=== PATIENT | male | born 1965 | race African-American/Black ===

== ENCOUNTER 2023-07-24 18:50 | Observation (INO) | payer OTHER ==
[2023-07-24] MEDS: SODIUM CHLORIDE 0.9% 1,000 ML IV STA (20:23)
[2023-07-24] MEDS: PANTOPRAZOLE 40 MG/10 ML VIAL IVP STA (20:25)
[2023-07-24] MEDS: ONDANSETRON 4 MG/2 ML VIAL IVP STA (20:25)
[2023-07-24] MEDS: MORPHINE SULFATE 4 MG/ML SYRINGE IVP STA (20:25)
--- NOTE | 2023-07-24 20:54 | XR ---
EXAMINATION TYPE: XR chest 2V DATE OF EXAM: 07/24/2023 8:49 PM CLINICAL INDICATION:Male, 58 years old with history of abdominal pain; H COMPARISON: None TECHNIQUE: XR chest 2V Frontal and lateral views of the chest. FINDINGS: Lungs/Pleura: Hazy bilateral lung base disease, right greater than left. No pleural effusion or pneum othorax. Pulmonary vascularity: Unremarkable. Heart/mediastinum: Cardiomediastinal silhouette is unremarkable. Musculoskeletal: No acute osseous pathology. IMPRESSION: Bibasilar airspace disease, concerning for developing infectious/inflammatory process.
[2023-07-24 21:26] LABS: Basophils # (A) 0.1 k/uL (0-0.2); Basophils % (A) 1 %; Eosinophils # (A) 0.4 k/uL (0-0.7); Eosinophils % (A) 4 %; HCT 48.7 % (39.0-53.0); HGB 15.8 gm/dL (13.0-17.5); Lymphocytes # (A) 1.2 k/uL (1.0-4.8); Lymphocytes % (A) 12 %; MCH 29.6 pg (25.0-35.0); MCHC 32.4 g/dL (31.0-37.0); MCV 91.3 fL (80.0-100.0); Mean Platelet Volume 7.9; Monocytes # (A) 0.4 k/uL (0-1.0); Monocytes % (A) 4 %; Neutrophils # (A) 7.9 k/uL (1.3-7.7); Neutrophils % (A) 79 %; Platelet Count 182 k/uL (150-450); RBC 5.33 m/uL (4.30-5.90); WBC 10.1 k/uL (3.8-10.6)
[2023-07-24 21:35] LABS: Prothrombin Time 10.6 sec (10.0-12.5)
[2023-07-24] MEDS: IPRATROPIUM-ALBUTEROL 3 ML NEB INHALATION STA (21:41)
[2023-07-24 21:43] LABS: Appearance,Urine Clear (Clear); Bilirubin,Urine Negative (Negative); Blood,Urine Negative (Negative); Color,Urine Yellow; Glucose,Urine (UA) Negative (Negative); Ketones,Urine Negative (Negative); Leukocyte Esterase,Urine Negative (Negative); Nitrite,Urine Negative (Negative); PH, Urine 6.5 (5.0-8.0); Protein,Urine Negative (Negative); Specific Gravity,Urine 1.027 (1.001-1.035)
[2023-07-24] MEDS: METOCLOPRAMIDE 5 MG/ML 2 ML VIAL IVP STA ×2 (21:43→21:55)
[2023-07-24] MEDS: methylPREDNISolone SOD SUCCI 125 MG/2 ML VIAL IV STA (21:55)
[2023-07-24] MEDS: diphenhydrAMINE 50 MG/ML 1 ML VIAL IVP STA (21:55)
[2023-07-24 21:59] LABS: ALT 20 U/L (4-49); AST 29 U/L (17-59); African American GFR (CKD) >90 (>60 ml/min/1.73 sqM); Albumin 3.9 g/dL (3.5-5.0); Alkaline Phosphatase 104 U/L (38-126); Amylase 67 U/L (30-110); Anion Gap 9 mmol/L; Blood Urea Nitrogen 17 mg/dL (9-20); Calcium 9.1 mg/dL (8.4-10.2); Carbon Dioxide 21 mmol/L (22-30); Chloride 106 mmol/L (98-107); Glucose 91 mg/dL (74-99); Lipase 49 U/L (23-300); Non-African American GFR(CKD) >90 (>60 ml/min/1.73 sqM); Potassium 4.3 mmol/L (3.5-5.1); Sodium 136 mmol/L (137-145); Total Bilirubin 0.6 mg/dL (0.2-1.3); Total Protein 7.4 g/dL (6.3-8.2)
--- NOTE | 2023-07-24 23:11 | ED ---
General Adult HPI - General Source: patient, EMS, RN notes reviewed, old records reviewed Mode of arrival: EMS Limitations: no limitations <Kenneth Minor - Last Filed: 07/24/23 23:06> <Hadley Washington - Last Filed: 07/25/23 01:49> - General Chief complaint: Nausea/Vomiting/Diarrhea Stated complaint: N/V/D Time Seen by Provider: 07/24/23 20:10 - History of Present Illness Initial comments: Is a 58-year-old male who presents emergency department complaining of abdominal pain. Is currently at [facility] for opiate abuse. He has been weaned off methadone. Was given Subutex which triggered his abdominal pain, nausea, vomiting. Is endorsing generalized pain. Also has been dealing with a nonproductive cough for multiple days. Has a history of tobacco abuse. Presents for further evaluation. Is asking for pain medications. (Kenneth Minor) 58 male to ER for evaluation of significant abdominal pain nausea vomiting severe nausea vomiting and persistent active vomiting here in the emergency department (Hadley Washington) - Related Data Allergies Allergy/AdvReac Type Severity Reaction Status Date / Time No Known Allergies Allergy Verified 07/24/23 19:10 Review of Systems ROS Other: All systems not noted in ROS Statement are negative. <Kenneth Minor - Last Filed: 07/24/23 23:06> ROS Other: All systems not noted in ROS Statement are negative. <Hadley Washington - Last Filed: 07/25/23 01:49> ROS Statement: Those systems with pertinent positive or pertinent negative responses have been documented in the HPI. Review of Systems: CONST: Denies fever EYES: Denies blurry vision ENT: Denies nasal congestion C/V: Denies Chest pain RESP: Endorses cough GI: Endorses nonfocal abdominal pain, nausea, vomiting : Denies dysuria SKIN: Denies rash. MSK: Denies joint pain. NEURO: Denies headache (Kenneth Minor) Past Medical History Past Medical History: Hypertension History of Any Multi-Drug Resistant Organisms: None Reported Past Surgical History: Appendectomy Past Psychological History: No Psychological Hx Reported Smoking Status: Current every day smoker Past Alcohol Use History: None Reported Past Drug Use History: None Reported <Kenneth Minor - Last Filed: 07/24/23 23:06> General Exam Limitations: no limitations <Kenneth Minor - Last Filed: 07/24/23 23:06> General appearance: anxious Head exam: Present: atraumatic, normocephalic, normal inspection Eye exam: Present: normal appearance, PERRL, EOMI. Absent: scleral icterus, conjunctival injection, periorbital swelling ENT exam: Present: normal exam, mucous membranes moist Neck exam: Present: normal inspection. Absent: tenderness, meningismus, lymph adenopathy Respiratory exam: Present: normal lung sounds bilaterally. Absent: respiratory distress, wheezes, rales, rhonchi, stridor Cardiovascular Exam: Present: regular rate, normal rhythm, normal heart sounds. Absent: systolic murmur, diastolic murmur, rubs, gallop, clicks GI/Abdominal exam: Present: soft, normal bowel sounds. Absent: distended, tenderness, guarding, rebound, rigid Extremities exam: Present: normal inspection, full ROM, normal capillary refill. Absent: tenderness, pedal edema, joint swelling, calf tenderness Back exam: Present: normal inspection Neurological exam: Present: alert, oriented X3, CN II-XII intact Psychiatric exam: Present: normal affect, normal mood Skin exam: Present: warm, dry, intact, normal color. Absent: rash <Hadley Washington - Last Filed: 07/25/23 01:49> - General Exam Comments Initial Comments: General: Appears in no acute distress. HEAD: Normal with no signs of head trauma. EYES: PERRLA, EOMI, conjunctiva normal, no discharge. ENT: Hearing grossly intact, normal oropharynx. RESPIRATORY: Mild end expiratory wheezing bilaterally. No significant hypoxia. C/V: Regular rate and rhythm. S1 and S2 auscultated, no edema, peripheral pulses 2+ and intact throughout ABD: Abdomen soft, nondistended. Abdominal pain periumbilically. No guarding. No rebound tenderness. No peritoneal signs. EXT: Normal range of motion, no obvious deformity SKIN: No rashes or lesions observed on exposed skin. NEURO: Alert and oriented x 4. Cranial nerves II-XII intact. No focal sensory or strength deficits. (Kenneth Minor) Course <Hadley Washington - Last Filed: 07/25/23 01:49> Vital Signs 07/24/23 07/24/2307/23/24 19:05 21:00 22:00 Temperature 97.2 F L Pulse Rate 72 72 84 Respiratory 20 18 18 Rate Blood Pressure 205/98 173/101 188/111 O2 Sat by Pulse 100 96 95 Oximetry 07/24/23 23:30 Temperature Pulse Rate 93 Respiratory 16 Rate Blood Pressure 183/87 O2 Sat by Pulse 96 Oximetry - Reevaluation(s) Reevaluation #1: 07/25/23 01:47 Medical records reviewed (Hadley Washington) Reevaluation #2: 07/25/23 01:47 Patient with difficult to control emesis and active vomiting (Hadley Washington) Medical Decision Making - Lab Data Result diagrams: 07/24/23 21:05 07/24/23 21:05 - EKG Data -: EKG Interpreted by Nc <Kenneth Minor - Last Filed: 07/24/23 23:06> - Lab Data Result diagrams: 07/24/23 21:05 07/24/23 21:05 - Radiology Data Radiology results: report reviewed (CT pelvis negative for acute disease), image reviewed <Hadley Washington - Last Filed: 07/25/23 01:49> - Medical Decision Making Was pt. sent in by a medical professional or institution ([facility], [employer], urgent care, hospital, or halfway...) When possible be specific @ -Sent by [facility] for evaluation for nausea and vomiting as well as cough and congestion. Did you speak to anyone other than the patient for history (EMS, parent, family, police, friend...)? What history was obtained from this source @ -No Did you review nursing and triage notes (agree or disagree)? Why? @ -I reviewed and agree with nursing and triage notes Were old charts reviewed (outside hosp., previous admission, EMS record, old EKG, old radiological studies, urgent care reports/EKG's, halfway records)? Report findings @ -No old charts were reviewed Differential Diagnosis (chest pain, altered mental status, abdominal pain women, abdominal pain men, vaginal bleeding, weakness, fever, dyspnea, syncope, headache, dizziness, GI bleed, back pain, seizure, CVA, palpatations, mental health, musculoskeletal)? @ -Differential Abdominal Pain Men: Appendicitis, cholecystitis, diverticulosis, ischemic bowel, pancreatitis, hepatitis, UTI, gastroenteritis, AAA, incarcerated hernia, bowel obstruction, constipation, inflammatory bowel, hepatitis, peptic ulcer disease, splenic infarction, perforated viscus, testicular torsion, this is not meant to be an all-inclusive list EKG interpreted by me (3pts min.). @ -As above X-rays interpreted by me (1pt min.). @ -Chest x-ray shows findings consistent with viral pneumonia. CT interpreted by me (1pt min.). @ -Pending U/S interpreted by me (1pt. min.). @ -None done What testing was considered but not performed or refused? (CT, X-rays, U/S, labs)? Why? @ -None What meds were considered but not given or refused? Why? @ -None Did you discuss the management of the patient with other professionals (susu bhatt i.e. , PA, [employer] TR[employer]IVER, lab, RT, psych nurse, bilingual social worker, director call, teacher, adult parole officer, counter caser)? Give summary @ -No Was smoking cessation discussed for >3mins.? @ -No Was critical care preformed (if so, how long)? @ -No Were there social determinants of health that impacted care today? How? (Homelessness, low income, unemployed, alcoholism, drug addiction, transportation, low edu. Level, literacy, decrease access to med. care, custodial, rehab)? @ -No Was there de-escalation of care discussed even if they declined (Discuss DNR or withdrawal of care, Hospice)? DNR status @ -No What co-morbidities impacted this encounter? (DM, HTN, Smoking, COPD, CAD, Cancer, CVA, ARF, Chemo, Hep., AIDS, mental health diagnosis, sleep apnea, morbid obesity)? @ -History of opiate abuse, COPD Was patient admitted / discharged? Hospital course, mention meds given and route, prescriptions, significant lab abnormalities, going to OR and other pertinent info. @ -Based on patient's presentation and physical exam, presents with nausea and vomiting as well as upper respiratory symptoms. Appears to have COPD exacerbation. He was given steroids and breathing treatment as well as abdominal analgesia medications, antiemetics, Protonix and fluids. We will obtain abdominal workup as well as screening EKG and x-ray. Patient was in agreement this plan. Could be related to the Subutex that he took. EKG shows no signs of acute ischemia. Laboratory studies are all within acceptable limits. Chest x-ray shows possible viral pneumonia. I updated the patient at this time. He still feeling nauseous with intermittent abdominal discomfort. I did offer a CT of the abdomen pelvis which she acce pted. I do believe the patient is having COPD exacerbation as well which she was made aware of. CT imaging still pending at this time. Signed out to Dr. Washington Pending results of imaging. Undiagnosed new problem with uncertain prognosis? @ -No Drug Therapy requiring intensive monitoring for toxicity (Heparin, Nitro, Insulin, Cardizem)? @ -No Were any procedures done? @ -No (Kenneth Minor) 58 male to ER for persistent withdrawal symptoms, patient will admit for evaluation of nausea vomiting with occasional abdominal pain. CT abdomen pelvis is negative for acute disease patient will be admitted for symptom control blood pressure control (Hadley Washington) - Lab Data Lab Results 07/24/23 07/24/23 07/24/23 Range/Units 20:32 21:05 21:05 WBC 10.1 (3.8-10.6) k/uL RBC 5.33 (4.30-5.90) m/uL Hgb 15.8 (13.0-17.5) gm/dL Hct 48.7 (39.0-53.0) % MCV 91.3 (80.0-100.0) fL MCH 29.6 (25.0-35.0) pg MCHC 32.4 (31.0-37.0) g/dL RDW 13.0 (11.5-15.5) % Plt Count 182 (150-450) k/uL MPV 7.9 Neutrophils % 79 % Lymphocytes % 12 % Monocytes % 4 % Eosinophils % 4 % Basophils % 1 % Neutrophils # 7.9 H (1.3-7.7) k/uL Lymphocytes # 1.2 (1.0-4.8) k/uL Monocytes # 0.4 (0-1.0) k/uL Eosinophils # 0.4 (0-0.7) k/uL Basophils # 0.1 (0-0.2) k/uL PT 10.6 (10.0-12.5) sec INR 1.0 (<1.2) APTT 27.0 (22.0-30.0) sec Sodium (137-145) mmol/L Potassium (3.5-5.1) mmol/L Chloride (98-107) mmol/L Carbon Dioxide (22-30) mmol/L Anion Gap mmol/L BUN (9-20) mg/dL Creatinine (0.66-1.25) mg/dL Est GFR (CKD-EPI)AfAm (>60 ml/min/1.73 sqM) Est GFR (CKD-EPI)NonAf (>60 ml/min/1.73 sqM) Glucose (74-99) mg/dL Calcium (8.4-10.2) mg/dL Total Bilirubin (0.2-1.3) mg/dL AST (17-59) U/L ALT (4-49) U/L Alkaline Phosphatase (38-126) U/L Troponin I (0.000-0.034) ng/mL Total Protein (6.3-8.2) g/dL Albumin (3.5-5.0) g/dL Amylase (30-110) U/L Lipase (23-300) U/L Urine Color Urine Appearance (Clear) Urine pH (5.0-8.0) Ur Specific [place] (1.001-1.035) Urine Protein (Negative) Urine Glucose (UA) (Negative) Urine Ketones (Negative) Urine Blood (Negative) Urine Nitrite (Negative) Urine Bilirubin (Negative) Urine Urobilinogen (<2.0) mg/dL Ur Leukocyte Esterase (Negative) Influenza Type A (PCR) Not Detected (Not Detectd) Influenza Type B (PCR) Not Detected (Not Detectd) RSV (PCR) Not Detected (Not Detectd) SARS-CoV-2 (PCR) Not Detected (Not Detectd) 07/24/23 07/24/23 07/25/23 Range/Units 21:05 21:31 00:00 WBC (3.8-10.6) k/uL RBC (4.30-5.90) m/uL Hgb (13.0-17.5) gm/dL Hct (39.0-53.0) % MCV (80.0-100.0) fL MCH (25.0-35.0) pg MCHC (31.0-37.0) g/dL RDW (11.5-15.5) % Plt Count (150-450) k/uL MPV Neutrophils % % Lymphocytes % % Monocytes % % Eosinophils % % Basophils % % Neutrophils # (1.3-7.7) k/uL Lymphocytes # (1.0-4.8) k/uL Monocytes # (0-1.0) k/uL Eosinophils # (0-0.7) k/uL Basophils # (0-0.2) k/uL PT (10.0-12.5) sec INR (<1.2) APTT (22.0-30.0) sec Sodium 136 L (137-145) mmol/L Potassium 4.3 (3.5-5.1) mmol/L Chloride 106 (98-107) mmol/L Carbon Dioxide 21 L (22-30) mmol/L Anion Gap 9 mmol/L BUN 17 (9-20) mg/dL Creatinine 0.72 (0.66-1.25) mg/dL Est GFR (CKD-EPI)AfAm >90 (>60 ml/min/1.73 sqM) Est GFR (CKD-EPI)NonAf >90 (>60 ml/min/1.73 sqM) Glucose 91 (74-99) mg/dL Calcium 9.1 (8.4-10.2) mg/dL Total Bilirubin 0.6 (0.2-1.3) mg/dL AST 29 (17-59) U/L ALT 20 (4-49) U/L Alkaline Phosphatase 104 (38-126) U/L Troponin I 0.017 (0.000-0.034) ng/mL Total Protein 7.4 (6.3-8.2) g/dL Albumin 3.9 (3.5-5.0) g/dL Amylase 67 (30-110) U/L Lipase 49 (23-300) U/L Urine Color Yellow Urine Appearance Clear (Clear) Urine pH 6.5 (5.0-8.0) Ur Specific [place] 1.027 (1.001-1.035) Urine Protein Negative (Negative) Urine Glucose (UA) Negative (Negative) Urine Ketones Negative (Negative) Urine Blood Negative (Negative) Urine Nitrite Negative (Negative) Urine Bilirubin Negative (Negative) Urine Urobilinogen 2.0 (<2.0) mg/dL Ur Leukocyte Esterase Negative (Negative) Influenza Type A (PCR) (Not Detectd) Influenza Type B (PCR) (Not Detectd) RSV (PCR) (Not Detectd) SARS-CoV-2 (PCR) (Not Detectd) - EKG Data EKG Comments: 12-lead Electrocardiogram Interpretation Note EKG was reviewed and interpreted by myself. 12-lead ECG performed at 3 is interpreted by me as revealing normal sinus rhythm at a rate of 64 beats per minute. [place] normal. CA interval is 167 ms, QRS durations 106 ms, QTc is 443 ms.. There were no ST or T wave abnormalities to suggest myocardial ischemia or injury. R wave progression across the precordium was satisfactory. By my interpretation this EKG is non-diagnostic for acute ischemia. (Kenneth Minor) Disposition <Kenneth Minor - Last Filed: 07/24/23 23:06> Is patient prescribed a controlled substance at d/c from ED?: No Time of Disposition: 01:00 <Hadley Washington - Last Filed: 07/25/23 01:49> Clinical Impression: Dehydration, Nausea & vomiting, Abdominal pain, Opioid withdrawal, Hypertension Disposition: ADMITTED IP TO THIS HOSP Condition: Fair Referrals: None,Stated [Primary Care Provider] - 1-2 days
[2023-07-24] MEDS: PROCHLORPERAZINE INJ 10 MG/2 ML VIAL IVP STA (23:34)
[2023-07-24] MEDS: LORazepam 2 MG/ML INJ IV STA (23:34)
[2023-07-24] MEDS: cloNIDine 0.3 MG/24HR PATCH TRANSDERM SCH (23:38)
--- NOTE | 2023-07-24 23:43 | CT ---
EXAM: CT Abdomen and Pelvis With Intravenous Contrast CLINICAL HISTORY: ITS.REASON CT Reason: abdominal pain, nonfocal. n/v TECHNIQUE: Axial computed tomography images of the abdomen and pelvis with intravenous contrast. CTDI is 115.2 mGy and DLP is 711.6 mGy-cm. This CT exam was performed using one or more of the following dose reduction techniques: automated exposure control, adjustment of the mA and/or kV according to patient size, and/or use of iterative reconstruction technique. COMPARISON: No relevant prior studies available. FINDINGS: Lung bases: Unremarkable. No mass. No consolidation. ABDOMEN: Liver: Unremarkable. No mass. Gallbladder and bile ducts: Cholelithiasis. No ductal dilation. Pancreas: Unremarkable. No mass. No ductal dilation. Spleen: Unremarkable. No splenomegaly. Adrenals: Unremarkable. No mass. Kidneys and ureters: Unremarkable. No hydronephrosis or delayed nephrogram. Stomach and bowel: Mild fecal retention, correlate for constipation. No small bowel obstruction. No free air. No mucosal thickening. PELVIS: Appendix: No findings to suggest acute appendicitis. Bladder: Unremarkable. No mass. Reproductive: Unremarkable as visualized. ABDOMEN and PELVIS: Intraperitoneal space: See above. Bones/joints: Degenerative changes of the spine. No acute fracture. No dislocation. Soft tissues: Unremarkable. Vasculature: Atherosclerotic changes of the aorta. No abdominal aortic aneurysm. Lymph nodes: Unremarkable. No enlarged lymph nodes. IMPRESSION: 1. No hydronephrosis or delayed nephrogram. 2. Cholelithiasis. 3. Mild fecal retention, correlate for constipation. No small bowel obstruction. No free air.
[2023-07-25] MEDS ORDERED: NALOXONE 0.4 MG/ML 1 ML VIAL IV PRN (01:46)
[2023-07-25] MEDS ORDERED: ONDANSETRON 4 MG/2 ML VIAL IVP PRN (01:46)
[2023-07-25] MEDS: SODIUM CHLORIDE 0.9% 1,000 ML IV SCH (02:32)
[2023-07-25] MEDS: LABETALOL 5 MG/ML VIAL MDV IVP STA (04:14)
--- NOTE | 2023-07-25 04:32 | P.HPIM ---
History of Present Illness H&P Date: 07/25/23 Patient is a 58-year-old male with a PMH of polysubstance abuse who was sent in from [facility] for intractable nausea and vomiting. The patient was lethargic at the time of interview and history thereby supplemented from the chart. The patient is currently being weaned off from methadone which she had taken for quite some time and was switched to buprenorphine earlier this week, which immediately made him develop severe abdominal pain, nausea, with vomiting. He denies any blood in his vomitus. Also denies experiencing abdominal pain, chest discomfort, shortness of breath, fever, chills, cough. CT abdomen pelvis in the emergency room revealed constipation with no other acute abnormalities noted. Chest x-ray revealed bibasilar atelectasis with EKG showing sinus rhythm with sinus arrhythmia at 64 bpm as reviewed by me. Laboratory evaluation was remarkable for WBC count 10.1, hemoglobin 15.8, sodium 136, CO2 21, BUN 17, creatinine 0.72, troponin I 0.017, with an unremarkable UA and negative respiratory viral panel. ED documentation reviewed and case discussed with ED provider. Review of systems: Pertinent positives and negatives as discussed in HPI, a complete review of sy stems was performed and all other systems are negative. Physical examination: Vital signs reviewed General: non toxic, no distress, appears at stated age, overweight Derm: no unusual rashes/lesions, warm Head: atraumatic, normocephalic, symmetric Eyes: EOMI, no lid lag, anicteric sclera, pupils equal round reactive to light ENT: Nose and ears atraumatic Neck: No cervical lymphadenopathy, trachea midline, supple Mouth: no lip lesion, mucus membranes somewhat dry Cardiovascular: S1S2 reg, no murmur, positive dorsalis pedis pulse bilateral, no edema Lungs: CTA bilateral, no rhonchi, no rales, no accessory muscle use Abdominal: soft, nontender to palpation, no guarding Ext: muscle strength 5 out of 5 in all 4 extremities grossly, no gross muscle atrophy, no contractures, Neuro: CN II-XI grossly intact, no gross focal neuro deficits Psych: Lethargic but oriented x 3 and answering questions appropriately Assessment: Intractable nausea and vomiting secondary to buprenorphine Hypertensive urgency Imaging: CT abdomen pelvis in the emergency room revealed constipation with no other acut e abnormalities noted. Chest x-ray revealed bibasilar atelectasis with EKG showing sinus rhythm with sinus arrhythmia at 64 bpm as reviewed by me. Data Review: Laboratory evaluation was remarkable for WBC count 10.1, hemoglobin 15.8, sodium 136, CO2 21, BUN 17, creatinine 0.72, troponin I 0.017, with an unremarkable UA and negative respiratory viral panel. Plan: Continue with Zofran and Reglan as needed Continue IV fluids with normal saline 130 cc/h The patient's BP upon arrival at the emergency room was 205/98 with pulse 72, temp 97.2 F and SpO2 100% on room air. Continue with clonidine patch Initiate Norvasc and Lisinopril Fall precautions Cardiac monitoring DVT prophylaxis: Lovenox Subq The patient is admitted with an anticipated less than 2 midnight stay for evaluation of nausea and vomiting CODE STATUS: Full Code Discussed with: Patient Anticipated discharge place: [facility] Past Medical History Past Medical History: Hypertension History of Any Multi-Drug Resistant Organisms: None Reported Past Surgical History: Appendectomy Past Psychological History: No Psychological Hx Reported Smoking Status: Current every day smoker Past Alcohol Use History: None Reported Past Drug Use History: None Reported Medications and Allergies Allergies Allergy/AdvReac Type Severity Reaction Status Date / Time No Known Allergies Allergy Verified 07/24/23 19:10 Physical Exam Vitals: Vital Signs Temp Pulse Resp BP Pulse Ox 07/25/23 02:00 107 H 16 196/90 96 07/24/23 23:30 93 16 183/87 96 07/24/23 22:00 84 18 188/111 95 07/24/23 21:00 72 18 173/101 96 07/24/23 19:05 97.2 F L 72 20 205/98 100 Intake and Output 07/24/23 07/24/23 07/25/23 14:59 22:59 06:59 Other: Weight 70.307 kg Results CBC & Chem 7: 07/24/23 21:05 07/24/23 21:05 Labs: Abnormal Lab Results - Last 24 Hours (Table) 07/24/23 07/24/23 Range/Units 21:05 21:05 Neutrophils # 7.9 H (1.3-7.7) k/uL Sodium 136 L (137-145) mmol/L Carbon Dioxide 21 L (22-30) mmol/L
[2023-07-25] MEDS: lisinopriL 10 MG TAB PO STA (05:28)
[2023-07-25] MEDS: amLODIPine 10 MG TAB PO STA (05:28)
[2023-07-25 08:09] LABS: HCT 46.5 % (39.0-53.0); MCH 29.7 pg (25.0-35.0); MCHC 32.3 g/dL (31.0-37.0); MCV 92.2 fL (80.0-100.0); Mean Platelet Volume 7.5; Platelet Count 209 k/uL (150-450); RBC 5.04 m/uL (4.30-5.90); RDW 12.8 % (11.5-15.5); WBC 6.5 k/uL (3.8-10.6)
[2023-07-25 08:28] LABS: ALT 22 U/L (4-49); AST 28 U/L (17-59); African American GFR (CKD) >90 (>60 ml/min/1.73 sqM); Albumin 3.8 g/dL (3.5-5.0); Albumin/Globulin Ratio 1.1; Alkaline Phosphatase 95 U/L (38-126); Anion Gap 10 mmol/L; Blood Urea Nitrogen 14 mg/dL (9-20); Calcium 9.2 mg/dL (8.4-10.2); Carbon Dioxide 20 mmol/L (22-30); Chloride 105 mmol/L (98-107); Globulin 3.4 g/dL; Glucose 154 mg/dL (74-99); Magnesium 1.5 mg/dL (1.6-2.3); Non-African American GFR(CKD) >90 (>60 ml/min/1.73 sqM); Potassium 3.8 mmol/L (3.5-5.1); Sodium 135 mmol/L (137-145); Total Bilirubin 0.5 mg/dL (0.2-1.3); Total Protein 7.2 g/dL (6.3-8.2)
[2023-07-25] MEDS: amLODIPine 10 MG TAB PO SCH (09:16)
[2023-07-25] MEDS: ENOXAPARIN 40 MG/0.4 ML SYRINGE SQ SCH (09:17)
[2023-07-25] MEDS: lisinopriL 10 MG TAB PO SCH (09:17)
[2023-07-25 15:52] VITALS: RESP 16
[2023-07-25] MEDS: MAGNESIUM SULFATE-D5W PMX 1 GM in DEXTROSE/WATER 1 100ML.BAG IVPB SCH (17:10)
--- NOTE | 2023-07-25 18:30 | P.PN ---
Subjective Progress Note Date: 07/25/23 Hospital course: Patient is a 58-year-old male with a past medical history of polysubstance abuse. He was sent to the emergency department overnight from [place] secondary to intractable abdominal pain with nausea and vomiting status post being started on buprenorphine. Upon arrival to the emergency department patient underwent evaluation. Vital signs upon arrival show blood pressure 205/98, heart rate 72, respiratory rate 20, temp 97.2 F, and SpO2 of 100% on room air. EKG was completed showing normal sinus rhythm with sinus arrhythmia at 64 bpm. Chest x-ray completed showing bibasilar hazy appearance with no noted pleural effusion or vascular congestion reported. Labs completed and reviewed. CBC unremarkable. Coagulation profile normal findings. BMP showing sodium 136 and bicarb of 21 otherwise normal findings. Liver profile normal findings. Amylase and lipase unremarkable. Urinalysis negative for infection. CT abdomen and pelvis with IV contrast was completed showing cholelithiasis without acute cholecystitis and mild fecal retention with no signs of obstruction. Patient was admitted under our services for intractable abdominal pain, nausea, and vomiting. Physical exam: Patient sleeping upon initial examination, awoken via verbal stimuli but rolled over and only answering minimal questions. He has had no further reports of nausea or vomiting at this time and pain appears to be controlled. Vital signs reviewed and stable. General: Nontoxic, no distress and appears stated age. Derm: Skin warm and dry, normal coloration for ethnicity. Head: Atraumatic, normocephalic and symmetric. Eyes: EOMs intact, no lid lag, and anicteric sclera Mouth: no lip lesions, mucus membranes moist Cardiovascular: regular rate and rhythm with normal S1S2, no murmur, positive posterior tibial pulses bilaterally, and cap refill < 2 seconds. Lungs: Respirations even, regular, and unlabored on room air. Lungs CTA bilaterally, no rhonchi, no rales, no wheezing, and no accessory muscle usage. Abdominal: soft, nontender to palpation, no guarding, no appreciable organomegaly Ext: ROM intact. No gross muscle atrophy, no edema, no contractures Neuro/psych: Patient sleeping, aroused via verbal stimuli but would only answer 1 or 2 questions and go back to sleep. Face symmetrical. No obvious neurodeficits noted. Assessment and Plan of Care: Intractable nausea and vomiting secondary to buprenorphine Polysubstance abuse, unknown type as patient did not provide -Hold buprenorphine -Symptomatic care and pain management. -Antiemetics with Zofran 4 mg IVP every 8 hours as needed for nausea or vomiting. -Continue with vigorous IV fluid hydration with 0.9% normal saline at 130 cc/h. -Monitor for signs of withdrawal. -Seizure precautions were placed Hypertensive urgency Hypertensive urgency multifactorial secondary to withdraw and reports of intractable pain, nausea and vomiting -Clonidine patch 0.3 mg was applied in the emergency department and patient started on lisinopril 10 mg daily and amlodipine 10 mg daily. -Monitor for signs of withdrawal. -Monitor vital signs closely. -Telemetry monitoring. Hypomagnesemia -Magnesium 1.5. Orders placed for magnesium sulfate 2 g IVPB. Data reviewed: Repeat morning labs reviewed. CBC remains unremarkable. BMP showing sodium 135 and bicarb of 20 otherwise normal findings. Blood glucose 154. Magnesium was low at 1.5. CODE STATUS: Full code DVT prophylaxis: Lovenox Anticipated discharge date: Likely 24 to [address]: Home versus return to [place] Patient was seen independently by Nurse Pracitioner. This document was prepared using [employer] dictation software. Please allow for errors in packaging technician, while rare they do occur. I reviewed the documentation as provided by the BRYAN above, who is the original author of this note. I agree with the documented assessment and plan, with the following changes: none Objective - Vital Signs Vital signs: Vital Signs Temp 97.2 F L 07/24/23 19:05 Pulse 110 H 07/25/23 06:45 Resp 16 07/25/23 06:45 BP 165/84 07/25/23 06:45 Pulse Ox 95 07/25/23 06:45 FiO2 Intake & Output 07/24/23 07/25/23 07/25/23 18:59 06:59 18:59 Weight 70.307 kg - Labs CBC & Chem 7: 07/25/23 07:32 07/26/23 10:26 Labs: Abnormal Lab Results - Last 24 Hours (Table) 07/24/23 07/24/23 Range/Units 21:05 21:05 Neutrophils # 7.9 H (1.3-7.7) k/uL Sodium 136 L (137-145) mmol/L Carbon Dioxide 21 L (22-30) mmol/L
[2023-07-26 08:26] VITALS: BP 138/77; PULSE 83; TEMP 98.1
[2023-07-26 10:52] LABS: African American GFR (CKD) >90 (>60 ml/min/1.73 sqM); Anion Gap 5 mmol/L; Blood Urea Nitrogen 18 mg/dL (9-20); Calcium 8.9 mg/dL (8.4-10.2); Carbon Dioxide 21 mmol/L (22-30); Chloride 108 mmol/L (98-107); Glucose 128 mg/dL (74-99); Non-African American GFR(CKD) >90 (>60 ml/min/1.73 sqM); Potassium 4.2 mmol/L (3.5-5.1); Sodium 134 mmol/L (137-145)
--- NOTE | 2023-07-26 15:04 | P.DS ---
Providers Date of admission: 07/25/23 01:47 Expected date of discharge: 07/26/23 Attending physician: Madai Wetzel MD Primary care physician: Stated None Hospital Course: Discharge Diagnosis: Intractable nausea and vomiting secondary to buprenorphine Polysubstance abuse, opioid withdraw Hypertensive urgency. Patient discharged on amlodipine 10 mg daily and lisinopril 10 mg daily. Blood pressure at time of discharge 138/77. Hypomagnesemia, resolved. Hospital Course: Patient is a 58-year-old male with a past medical history of polysubstance abuse. He was sent to the emergency department overnight from [place] secondary to intractable abdominal pain with nausea and vomiting status post being started on buprenorphine. Upon arrival to the emergency department patient underwent evaluation. Vital signs upon arrival show blood pressure 205/98, heart rate 72, respiratory rate 20, temp 97.2 F, and SpO2 of 100% on room air. EKG was completed showing normal sinus rhythm with sinus arrhythmia at 64 bpm. Chest x-ray completed showing bibasilar hazy appearance with no noted pleural effusion or vascular congestion reported. Labs completed and reviewed. CBC unremarkable. Coagulation profile normal findings. BMP showing sodium 136 and bicarb of 21 otherwise normal findings. Liver profile normal findings. Amylase and lipase unremarkable. Urinalysis negative for infection. CT abdomen and pelvis with IV contrast was completed showing cholelithiasis without acute cholecystitis and mild fecal retention with no signs of obstruction. Patient was admitted under our services for intractable abdominal pain, nausea, and vomiting. Patient hospitalized and treated with IV fluid hydration and IV antiemetics. He has had full resolution of abdominal pain, nausea, and vomiting. He was started on lisinopril and amlodipine for treatment of his hypertensive urgency and vital signs have stabilized. Patient free from any complaints this morning and is medically cleared to return back to [place] for continuation of rehab. Will defer when/if to resume Subutex to withdrawal specialist at [place]. Physical exam: Vital signs reviewed and stable. General: Nontoxic, no distress and appears stated age. Derm: Skin warm and dry, normal coloration for ethnicity. Head: Atraumatic, normocephalic and symmetric. Eyes: EOMs intact, no lid lag, and anicteric sclera Mouth: no lip lesions, mucus membranes moist Cardiovascular: regular rate and rhythm with normal S1S2, no murmur, positive posterior tibial pulses bilaterally, and cap refill < 2 seconds. Lungs: Respirations even, regular, and unlabored on room air. Lungs CTA bilaterally, no rhonchi, no rales, no wheezing, and no accessory muscle usage. Abdominal: soft, nontender to palpation, no guarding, no appreciable orga nomegaly Ext: ROM intact. No gross muscle atrophy, no edema, no contractures Neuro/psych: Patient sleeping, aroused via verbal stimuli but would only answer 1 or 2 questions and go back to sleep. Face symmetrical. No obvious neurodeficits noted. A total of 33 minutes of time were spent preparing this complex discharge summary. Pt was discharged on 07/26/2023 at 2:53 PM Patient was seen independently by Nurse Practitioner. This document was prepared using [employer] dictation software. Please allow for errors in acid tank liner while rare they do occur. I reviewed the documentation as provided by the BRYAN above, who is the original author of this note. I agree with the documented assessment and plan, with the following changes: none Patient Condition at Discharge: Stable Plan - Discharge Summary Discharge Rx Participant: No New Discharge Prescriptions: New amLODIPine [Norvasc] 10 mg PO DAILY 30 Days #30 tab lisinopriL [Zestril] 10 mg PO DAILY 30 Days #30 tab Continue Acetaminophen [Tylenol] 650 mg PO Q4H PRN PRN Reason: Pain Hyoscyamine Sulfate [Levsin] 125 mg PO QID PRN PRN Reason: cramps Ibuprofen [Motrin Ib] 600 mg PO Q6H PRN PRN Reason: Pain ondansetron HCL [Zofran] 8 mg PO Q6H PRN PRN Reason: Nausea And Vomiting Calcium/Mag/Zinc/D3 1 tab PO TID PRN PRN Reason: cramps Chlorpheniramine Maleate [Chlor-Trimeton] 4 mg PO Q4H PRN PRN Reason: Allergy Symptoms Loperamide HCl [Imodium A-D] 2 tab PO QID PRN MDD 8 tabs PRN Reason: Loose Stool Thiamine [Vitamin B-1] 100 mg PO DAILY No Action buprenorphine HCL [Subutex] See Taper SUBLINGUAL DIRECTED cloNIDine HCL [Catapres] 0.1 mg PO Q4H PRN PRN Reason: Anxiety traZODone HCL [Desyrel] 50 - 150 mg PO HS PRN PRN Reason: Insomnia Zofran 4mg/2ml 4 mg IM Q6H PRN PRN Reason: Nausea And Vomiting cloNIDine HCL [Catapres] 0.1 - 0.3 mg PO Q4H PRN PRN Reason: BP >160/100 Azithromycin [Zithromax Z Pack] 0 tab PO DIRECTED #6 tab Discharge Medication List Acetaminophen [Tylenol] 650 mg PO Q4H PRN 07/25/23 [History] Calcium/Mag/Zinc/D3 1 tab PO TID PRN 07/25/23 [History] Chlorpheniramine Maleate [Chlor-Trimeton] 4 mg PO Q4H PRN 07/25/23 [History] Hyoscyamine Sulfate [Levsin] 125 mg PO QID PRN 07/25/23 [History] Ibuprofen [Motrin Ib] 600 mg PO Q6H PRN 07/25/23 [History] Loperamide HCl [Imodium A-D] 2 tab PO QID PRN MDD 8 tabs 07/25/23 [History] Thiamine [Vitamin B-1] 100 mg PO DAILY 07/25/23 [History] Zofran 4mg/2ml 4 mg IM Q6H PRN 07/25/23 [History] buprenorphine HCL [Subutex] See Taper SUBLINGUAL DIRECTED 07/25/23 [History] cloNIDine HCL [Catapres] 0.1 - 0.3 mg PO Q4H PRN 07/25/23 [History] cloNIDine HCL [Catapres] 0.1 mg PO Q4H PRN 07/25/23 [History] ondansetron HCL [Zofran] 8 mg PO Q6H PRN 07/25/23 [History] traZODone HCL [Desyrel] 50 - 150 mg PO HS PRN 07/25/23 [History] amLODIPine [Norvasc] 10 mg PO DAILY 30 Days #30 tab 07/26/23 [Rx] lisinopriL [Zestril] 10 mg PO DAILY 30 Days #30 tab 07/26/23 [Rx] Azithromycin [Zithromax Z Pack] 0 tab PO DIRECTED #6 tab 07/29/23 [Rx] Follow up Appointment(s)/Referral(s): None,Stated [Primary Care Provider] - 1-2 days Patient Instructions/Handouts: Opioid Withdrawal (DC), Medical Clearance for Substance Abuse Treatment (DC) Activity/Diet/Wound Care/Special Instructions: Medically cleared for return to [place] for continued drug rehabilitation Activity: As tolerated. Take breaks as needed. Diet: Heart healthy and carb consistent diet. Avoid salts, or foods with hidden salts such as canned or boxed foods and frozen dinners. Extra salt makes your heart work harder and traps the fluid in your body for longer. Special Instructions: Take all of your medications as directed and remember to keep all of your doctor's appointments and follow-up as needed. Would defer to [place] with stress specialist to determine when safe for patient to resume Subutex status post opioid withdrawal. Thank you for allowing us to participate in your care, it was truly a pleasure having you for our patient!!! . Discharge Disposition: HOME SELF-CARE
== END 2023-07-26 15:24 | disposition home or self-care (01) ==
LOC: EC 18:50 → 6NMEDSUR 07-25 01:47
PROVIDERS: ADMIT Internal Medicine; ATTEND Internal Medicine
DX: T40.491A Poisoning by other synthetic narcotics, accidental (unintentional), initial encounter (principal); R11.2 Nausea with vomiting, unspecified; F11.10 Opioid abuse, uncomplicated; I16.0 Hypertensive urgency; E83.42 Hypomagnesemia; F17.210 Nicotine dependence, cigarettes, uncomplicated; Z90.49 Acquired absence of other specified parts of digestive tract
CPT/HCPCS: 96372 ×2; 96375 ×2; 96366; 96367; 96365; 99285; 36415 ×2; 93005; 80053 ×2; 80048; 82150; 83690; 83735 ×2; 84484; 85025; 85027; 85610; 85730; 81003; 87636; 71046; 74177; G0378 ×2; J2060; J2270; J1200; J0780; J2765; J2405; J1650 ×2; J3475; C9113; Q9967; J1920; J2919

== ENCOUNTER 2023-07-28 22:50 | Emergency (ER) | payer OTHER ==
--- NOTE | 2023-07-28 23:13 | ED ---
General Adult HPI - General Stated complaint: fever Time Seen by Provider: 07/28/23 23:12 Source: patient, RN notes reviewed Mode of arrival: EMS Limitations: no limitations - History of Present Illness Initial comments: 58-year-old male presenting to the ER via EMS with a chief complaint of cough and congestion. Patient is currently residing at [facility] for methamphetamine and fentanyl abuse. Patient states for the past couple of days he has been having fevers and cough. Patient is also a smoker. Patient denies any chest pain, difficulty breathing, abdominal pain, constipation/diarrhea, urinary complaints or peripheral edema. - Related Data Home Medications Medication Instructions Recorded Confirmed Acetaminophen [Tylenol] 650 mg PO Q4H PRN 07/25/23 07/25/23 Calcium/Mag/Zinc/D3 1 tab PO TID PRN 07/25/23 07/25/23 Chlorpheniramine Maleate 4 mg PO Q4H PRN 07/25/23 07/25/23 [Chlor-Trimeton] Hyoscyamine Sulfate [Levsin] 125 mg PO QID PRN 07/25/23 07/25/23 Ibuprofen [Motrin Ib] 600 mg PO Q6H PRN 07/25/23 07/25/23 Loperamide HCl [Imodium A-D] 2 tab PO QID PRN MDD 8 tabs 07/25/23 07/25/23 Thiamine [Vitamin B-1] 100 mg PO DAILY 07/25/23 07/25/23 Zofran 4mg/2ml 4 mg IM Q6H PRN 07/25/23 07/25/23 buprenorphine HCL [Subutex] See Taper SUBLINGUAL DIRECTED 07/25/23 07/25/23 cloNIDine HCL [Catapres] 0.1 - 0.3 mg PO Q4H PRN 07/25/23 07/25/23 cloNIDine HCL [Catapres] 0.1 mg PO Q4H PRN 07/25/23 07/25/23 ondansetron HCL [Zofran] 8 mg PO Q6H PRN 07/25/23 07/25/23 traZODone HCL [Desyrel] 50 - 150 mg PO HS PRN 07/25/23 07/25/23 Previous Rx's Medication Instructions Recorded amLODIPine [Norvasc] 10 mg PO DAILY 30 Days #30 tab 07/26/23 lisinopriL [Zestril] 10 mg PO DAILY 30 Days #30 tab 07/26/23 Azithromycin [Zithromax Z Pack] 0 tab PO DIRECTED #6 tab 07/29/23 Allergies Allergy/AdvReac Type Severity Reaction Status Date / Time No Known Allergies Allergy Verified 07/25/23 09:33 Review of Systems ROS Statement: Those systems with pertinent positive or pertinent negative responses have been documented in the HPI. ROS Other: All systems not noted in ROS Statement are negative. Past Medical History Past Medical History: Hypertension History of Any Multi-Drug Resistant Organisms: None Reported Past Surgical History: Appendectomy Past Psychological History: No Psychological Hx Reported Smoking Status: Current every day smoker Past Alcohol Use History: None Reported Past Drug Use History: None Reported General Exam - General Exam Comments Initial Comments: Visual Physical Exam Vital signs reviewed General: Well-appearing, nontoxic, no acute distress. Head: Normocephalic, atraumatic Eyes: PERRLA, EOMI ENT: Airway patent Chest: Nonlabored breathing Skin: No visual rash, normal skin tone Neuro: Alert and oriented 3 Musculoskeletal: No gross abnormalities General appearance: alert, in no apparent distress Head exam: Present: atraumatic, normocephalic, normal inspection Eye exam: Present: normal appearance, PERRL, EOMI. Absent: scleral icterus, conjunctival injection, periorbital swelling ENT exam: Present: normal exam, normal oropharynx, mucous membranes moist, TM's normal bilaterally Neck exam: Present: normal inspection. Absent: tenderness, meningismus, lymphadenopathy Respiratory exam: Present: normal lung sounds bilaterally. Absent: respiratory distress, wheezes, rales, rhonchi, stridor Cardiovascular Exam: Present: regular rate, normal rhythm, normal heart sounds. Absent: systolic murmur, diastolic murmur, rubs, gallop, clicks Neurological exam: Present: alert, oriented X3, CN II-XII intact Skin exam: Present: warm, dry, intact, normal color. Absent: rash Course Vital Signs 07/28/23 07/29/23 23:58 02:54 Temperature 100.7 F H 101 F H Pulse Rate 91 90 Respiratory 20 18 Rate Blood Pressure 159/80 137/76 O2 Sat by Pulse 98 97 Oximetry Medical Decision Making - Medical Decision Making I performed the quick note portion of this chart. Electronically signed by RIDDHI BarreraC Was pt. sent in by a medical professional or institution (YAMILET Salazar, [employer], urgent care, hospital, or halfway...) When possible be specific @ -Patient sent by [facility] for evaluation of cough and fever. Did you speak to anyone other than the patient for history (EMS, parent, family, police, friend...)? What history was obtained from this source @ -No Did you review nursing and triage notes (agree or disagree)? Why? @ -I reviewed and agree with nursing and triage notes Were old charts reviewed (outside hosp., previous admission, EMS record, old EKG, old radiological studies, urgent care reports/EKG's, halfway records)? Report findings @ -No old charts were reviewed Differential Diagnosis (chest pain, altered mental status, abdominal pain women, abdominal pain men, vaginal bleeding, weakness, fever, dyspnea, syncope, headache, dizziness, GI bleed, back pain, seizure, CVA, palpatations, mental health, musculoskeletal)? @ -Differential Fever:Pneumonia, viral URI, endocarditis, myocarditis, peric arditis, otitis, sinusitis, peritonsillar Abscess, retropharyngeal Abscess, epiglottitis, peritonitis, appendicitis, Ramona cystitis, diverticulitis, hepatitis, colitis, UTI, PID, TOA, pyelonephritis, prostatitis, epididymitis, meningitis, encephalitis, pulmonary embolism, CVA, thyroid storm, pancreatitis, adrenal crisis, cavernous sinus thrombosis, this is not meant to be an all- inclusive list. EKG interpreted by me (3pts min.). @ -None X-rays interpreted by me (1pt min.). @ -Chest x-ray interpreted me early infiltrate in the right lung. CT interpreted by me (1pt min.). @ -None done U/S interpreted by me (1pt. min.). @ -None done What testing was considered but not performed or refused? (CT, X-rays, U/S, labs)? Why? @ -None What meds were considered but not given or refused? Why? @ -None Did you discuss the management of the patient with other professionals (professionals i.e. YAMILET Salazar, [employer], lab, RT, psych nurse, social media marketing analyst, gis engineer, teacher, aoc plans intelligence officer, shoe caser)? Give summary @ -No Was smoking cessation discussed for >3mins.? @ -I discussed smoking cessation for greater than 3 minutes. The risk of smoking were discussed with the patient including but not limited to risks of cancer, stroke, coronary artery disease and COPD. Also discussed with patient were multiple methods of quitting smoking. Lastly we discussed the financial cost of smoking. Was critical care preformed (if so, how long)? @ -No Were there social determinants of health that impacted care today? How? (Homelessness, low income, unemployed, alcoholism, drug addiction, transportation, low edu. Level, literacy, decrease access to med. care, long-term, rehab)? @ -No Was there de-escalation of care discussed even if they declined (Discuss DNR or withdrawal of care, Hospice)? DNR status @ -No What co-morbidities impacted this encounter? (DM, HTN, Smoking, COPD, CAD, Cancer, CVA, ARF, Chemo, Hep., AIDS, mental health diagnosis, sleep apnea, morbid obesity)? @ -Drug abuse/smoker Was patient admitted / discharged? Hospital course, mention meds given and route, prescriptions, significant lab abnormalities, going to OR and other pertinent info. @ -Discharge. 58-year-old male presented to the ER with chief complaint of cough and fevers. History and physical exam completed. Vitals significant for a temperature of 100 upon arrival. Patient in no signs of acute distress and nontoxic-appearing. Lung sounds clear to oscillation bilaterally. Laboratory studies obtained remarkable for a WBC 13.3 with a left shift. CMP unimpressive. Influenza, RSV and COVID-negative. Chest x-ray interpreted by me significant for early infiltrate right lobe. Due to white blood cell count with a left shift patient will be started on azithromycin. First dose in the ER. Patient also received Tylenol for fever control in the ER. Results discussed with patient, all questions answered. Return parameters discussed. Patient discharged in stable condition back to [facility]. Follow-up with PCP. Patient verbally expressed understanding and agreement with care plan. Case discussed with ED attending, Dr. Johnson. Undiagnosed new problem with uncertain prognosis? @ -No Drug Therapy requiring intensive monitoring for toxicity (Heparin, Nitro, Insulin, Cardizem)? @ -No Were any procedures done? @ -No Diagnosis/symptom? @ -Pneumonia Acute, or Chronic, or Acute on Chronic? @ -Acute Uncomplicated (without systemic symptoms) or Complicated (systemic symptoms)? @ -Uncomplicated Side effects of treatment? @ -No Exacerbation, Progression, or Severe Exacerbation? @ -No Poses a threat to life or bodily function? How? (Chest pain, USA, CA, pneumonia, PE, COPD, DKA, ARF, appy, cholecystitis, CVA, Diverticulitis, Homicidal, Suicidal, threat to staff... and all critical care pts) @ -No - Lab Data Result diagrams: 07/29/23 00:15 07/29/23 00:15 Lab Results 07/29/23 07/29/23 07/29/23 Range/Units 00:15 00:15 00:15 WBC 13.3 H (3.8-10.6) k/uL RBC 5.20 (4.30-5.90) m/uL Hgb 15.1 (13.0-17.5) gm/dL Hct 47.1 (39.0-53.0) % MCV 90.5 (80.0-100.0) fL MCH 29.0 (25.0-35.0) pg MCHC 32.0 (31.0-37.0) g/dL RDW 12.7 (11.5-15.5) % Plt Count 201 (150-450) k/uL MPV 7.2 Neutrophils % 84 % Lymphocytes % 9 % Monocytes % 5 % Eosinophils % 1 % Basophils % 0 % Neutrophils # 11.1 H (1.3-7.7) k/uL Lymphocytes # 1.2 (1.0-4.8) k/uL Monocytes # 0.6 (0-1.0) k/uL Eosinophils # 0.2 (0-0.7) k/uL Basophils # 0.1 (0-0.2) k/uL Sodium 136 L (137-145) mmol/L Potassium 4.3 (3.5-5.1) mmol/L Chloride 108 H (98-107) mmol/L Carbon Dioxide 21 L (22-30) mmol/L Anion Gap 7 mmol/L BUN 16 (9-20) mg/dL Creatinine 0.58 L (0.66-1.25) mg/dL Est GFR (CKD-EPI)AfAm >90 (>60 ml/min/1.73 sqM) Est GFR (CKD-EPI)NonAf >90 (>60 ml/min/1.73 sqM) Glucose 91 (74-99) mg/dL Calcium 9.3 (8.4-10.2) mg/dL Total Bilirubin 1.0 (0.2-1.3) mg/dL AST 26 (17-59) U/L ALT 21 (4-49) U/L Alkaline Phosphatase 81 (38-126) U/L Total Protein 7.4 (6.3-8.2) g/dL Albumin 3.9 (3.5-5.0) g/dL Influenza Type A (PCR) Not Detected (Not Detectd) Influenza Type B (PCR) Not Detected (Not Detectd) RSV (PCR) Not Detected (Not Detectd) SARS-CoV-2 (PCR) Not Detected (Not Detectd) - Radiology Data Radiology results: image reviewed Disposition Clinical Impression: Pneumonia Disposition: HOME SELF-CARE Condition: Stable Instructions (If sedation given, give patient instructions): Pneumonia (ED) Additional Instructions: Complete full course of azithromycin. You may take [id number] Tylenol and Motrin for symptom control. Return to the ER for new or worse concerns. Prescriptions: Azithromycin [Zithromax Z Pack] 0 tab PO DIRECTED #6 tab Is patient prescribed a controlled substance at d/c from ED?: No Referrals: None,Stated [Primary Care Provider] - 1-2 days Time of Disposition: 02:46
[2023-07-29 00:36] LABS: Basophils # (A) 0.1 k/uL (0-0.2); Basophils % (A) 0 %; Eosinophils # (A) 0.2 k/uL (0-0.7); Eosinophils % (A) 1 %; HCT 47.1 % (39.0-53.0); HGB 15.1 gm/dL (13.0-17.5); Lymphocytes # (A) 1.2 k/uL (1.0-4.8); Lymphocytes % (A) 9 %; MCV 90.5 fL (80.0-100.0); Mean Platelet Volume 7.2; Monocytes # (A) 0.6 k/uL (0-1.0); Monocytes % (A) 5 %; Neutrophils # (A) 11.1 k/uL (1.3-7.7); Neutrophils % (A) 84 %; Platelet Count 201 k/uL (150-450); RDW 12.7 % (11.5-15.5); WBC 13.3 k/uL (3.8-10.6)
[2023-07-29 00:56] LABS: ALT 21 U/L (4-49); AST 26 U/L (17-59); African American GFR (CKD) >90 (>60 ml/min/1.73 sqM); Albumin 3.9 g/dL (3.5-5.0); Alkaline Phosphatase 81 U/L (38-126); Anion Gap 7 mmol/L; Blood Urea Nitrogen 16 mg/dL (9-20); Calcium 9.3 mg/dL (8.4-10.2); Carbon Dioxide 21 mmol/L (22-30); Chloride 108 mmol/L (98-107); Glucose 91 mg/dL (74-99); Non-African American GFR(CKD) >90 (>60 ml/min/1.73 sqM); Potassium 4.3 mmol/L (3.5-5.1); Sodium 136 mmol/L (137-145); Total Protein 7.4 g/dL (6.3-8.2)
--- NOTE | 2023-07-29 01:24 | XR ---
EXAM: XR Chest, 2 Views CLINICAL HISTORY: ITS.REASON XR Reason: cough TECHNIQUE: Frontal and lateral views of the chest. COMPARISON: No relevant prior studies available. FINDINGS: Lungs: Unremarkable. No consolidation. Pleural space: Unremarkable. No pneumothorax. Heart: Unremarkable. No cardiomegaly. Mediastinum: Unremarkable. Normal mediastinal contour. Bones/joints: Unremarkable. No acute fracture. IMPRESSION: No consolidation.
[2023-07-29] MEDS: ACETAMINOPHEN TAB 325 MG TAB PO STA (02:53)
[2023-07-29] MEDS: AZITHROMYCIN 500 MG TAB PO STA (02:54)
[2023-07-29 03:16] VITALS: BP 137/76; PULSE 90; RESP 18; TEMP 101
== END 2023-07-29 02:57 | disposition home or self-care (01) ==
LOC: EC 22:50
DX: J18.9 Pneumonia, unspecified organism (principal); F17.200 Nicotine dependence, unspecified, uncomplicated
CPT/HCPCS: 36415; 71046; 80053; 85025; 87636; 99283; 99406